=== PATIENT | female | born 1970 | race Caucasian/White ===

== ENCOUNTER 2016-09-19 19:10 | Inpatient (IN) | payer BC ==
[~2016-09-19 19:10] MED LIST: LEVO-154 PO; LINA72CA; LISI10TA3 PO; METO50TA PO; SERT-132 PO; VENTAER INH; ZOFR4TAB PO
[2016-09-19 20:00] VITALS: BP 139/66; PULSE 57; RESP 16; TEMP 96.8; O2SAT 95
[2016-09-19] MEDS ORDERED: ACETAMINOPHEN 325 MG TAB PO PRN ×2 (20:30→22:00)
[2016-09-19] MEDS ORDERED: LIDOCAINE 2% JELLY 30 ML TUBE TOPICAL PRN (20:30)
[2016-09-19] MEDS ORDERED: NALOXONE HCL 0.4 MG/ML AMP IV PRN ×2 (21:45→22:00)
[2016-09-19] MEDS ORDERED: MORPHINE SULFATE 4 MG/ML INJ IV PRN (21:45)
[2016-09-19] MEDS ORDERED: SODIUM CHLOR 0.9% 1000 ML INJ 1,000 ML IV SCH (21:46)
[2016-09-19] MEDS ORDERED: diphenhydrAMINE HCL 25 MG CAP PO PRN (22:00)
[2016-09-19] MEDS ORDERED: SODIUM CHLORIDE 0.9% FLUSH 10 ML FLUSH IV FLUSH PRN (22:00)
[2016-09-19] MEDS ORDERED: MAGNESIUM HYDROXIDE SUSP 30 ML CUP PO PRN (22:00)
[2016-09-19] MEDS ORDERED: ALBUTEROL SULFATE 90 MCG/ACT HFA 18 GM INHALER INH PRN (22:00)
[2016-09-19] MEDS ORDERED: SENNOSIDES 8.6 MG TAB PO PRN (22:00)
[2016-09-19] MEDS ORDERED: ONDANSETRON ODT 4 MG TAB PO PRN (22:00)
[2016-09-19] MEDS ORDERED: LACTULOSE SYRUP 20 GM/30 ML CUP PO PRN (22:00)
[2016-09-19] MEDS ORDERED: BISACODYL 10 MG SUPP RECTAL PRN (22:00)
--- NOTE | 2016-09-19 22:37 | HHI.HP ---
[facility] Service Family Medicine Primary Care Physician Non-Staff Admission Diagnosis Casandra-rectal abscess Diagnoses: Chief Complaint: Casandra-rectal pain International Travel<30 Days: No Contact w/Intl Traveler<30days: No History of Present Illness 46 yr old WF w/ PMH of IBS w/ alternating constipation and diarrhea, hypothyroidism, HTN, and atypical arrhythmia, admitted to ED [place] for two week hx of casandra-rectal pain. States she had a possible hemorrhoid around the affected area 4 months ago that resolved. Over the past two weeks, she has had constant pain that began around her right rectal region radiating to her right buttocks, down her right leg, and right vaginal area. She felt the pain was worsening and went to her PCP (Dr. Gokul Colmenares) in [place] on Wednesday, September 16. She started and finished a full course of Bactrim for possible UTI. The pain around her rectum worsen and experienced drainage of green/yellow pus. With no relief of symptoms, her PCP then started her on Clindamycin. She felt the pain was unbearable with both sitting and standing and immediately came to the ED. She reports she is hesitant to eat because of her constipation and does not want to exacerbate the rectal pain by using the bathroom. Denies fever, urinary problems, abdominal pain, SOB, and N/V. Review of Systems Constitutional: COMPLAINS OF: Change in appetite, DENIES: Fatigue, Fever Endocrine: DENIES: Heat/cold intolerance Eyes: DENIES: Vision loss Respiratory: DENIES: Shortness of breath Cardiovascular: DENIES: Chest pain Gastrointestinal: COMPLAINS OF: Constipation (states that she has to take fiber supplements for constipation), DENIES: Nausea, Vomiting Genitourinary: DENIES: Dysuria Musculoskeletal: DENIES: Stiffness Integumentary: DENIES: Rash Hematologic/lymphatic: DENIES: Lymphadenopathy Neurologic: DENIES: Headache Psychiatric: DENIES: Mood changes Past Family Social History Past Medical History Atypical arrhythmia, IBS, HTN, hypothyroidism Past Surgical History Lap cholecystectomy 1990 Lap band 2004, removed in 2008 Allergies: Coded Allergies: Contrast Media (Verified Allergy, Unknown, 09/19/16) Penicillin (Verified Allergy, Unknown, 09/19/16) Shellfish (Verified Allergy, Unknown, 09/19/16) Family History Colon Cancer in grandfather and sister HTN Social History Works as a nurse, 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 SKIN: No rashes, ecchymoses or lesions. Cool and dry. HEAD: Atraumatic. Normocephalic. No temporal or scalp tenderness. EYES: Pupils equal round and reactive. Extraocular motions intact. No scleral icterus. No injection or drainage. ENT: Nose without bleeding, purulent drainage or septal hematoma. Throat without erythema, tonsillar hypertrophy or exudate. Uvula midline. Airway patent. NECK: Trachea midline. No JVD or lymphadenopathy. Supple, nontender, no meningeal signs. CARDIOVASCULAR: Regular rate and rhythm without murmurs, gallops, or rubs. RESPIRATORY: Clear to auscultation. Breath sounds equal bilaterally. No wheezes , rales, or rhonchi. GASTROINTESTINAL: Abdomen soft, non-tender, nondistended. No hepato-splenomegaly , or palpable masses. No guarding. MUSCULOSKELETAL: Extremities without clubbing, cyanosis, or edema. No joint tenderness, effusion, or edema noted. No calf tenderness. Negative Homans sign bilaterally. NEUROLOGICAL: Awake and alert. Cranial nerves II through XII intact. Motor and sensory grossly within normal limits. Five out of 5 muscle strength in all muscle groups. Normal speech. GENITOURINARY: no superficial mass or swelling appreciated on exam, indurated and slightly erythematous/ warmth area around right rectal region. Laboratory None Imaging 1. Inflamed phlegmon numbness mass or abscess in the right issue rectal fossa adjacent to both the anal verge and vaginal introitus. This measures up to 4.6 x 3.8 cm. 2. No acute findings within the abdomen and pelvis. Previous cholecystectomy. Colonic diverticula. -Results from ED [place] 09/19/16 Assessment and Plan Assessment and Plan 46 yr old WF w/ PMH of IBS w/ alternating constipation and diarrhea, hypothyroidism, HTN, and atypical arrhythmia, admitted to ED [place] for casandra- rectal abscess. CT showed abscess measuring 4.6 x 3.8 cm in the right ischiorectal fossa adjacent to both the anal verge and vaginal introitus. Pt started on Cipro and metronidazole given source of abscess is likely GI. Colorectal surgery consulted for I & D. Problem List: (1) Perirectal abscess Status: Acute Plan: -Cipro & Metronidazole -Tylenol, Toradol, Narco for pain, Morphine for breakthrough pain -consulted colorectal surgery for I & D (2) FEN ppx chronic med conditions Status: Acute Plan: Fluids- maintenance w/ NS Electroylets- monitor and replaced as needed Nutrition- NPO after midnight for possible surgery tomorrow DVT prophylaxis- Heparin GI ppx- anti- constipation medications, Protonix not currently indicated chronic med conditions: continue meds per ordered Physician Certification 2 Midnight Certification Type: Admission for Inpatient Services Order for Inpatient Services The services are ordered in accordance with Medicare regulations or non- Medicare payer requirements, as applicable. In the case of services not specified as inpatient-only, they are appropriately provided as inpatient services in accordance with the 2-midnight benchmark. Estimated LOS (days): 2 2 days is the estimated time the patient will need to remain in the hospital, assuming treatment plan goals are met and no additional complications. Post-Hospital Plan: Home Yara Vela MD R1 Sep 19, 2016 22:37
[2016-09-19] MEDS: METOPROLOL TARTRATE 50 MG TAB PO SCH (22:40)
[2016-09-19] MEDS: HEPARIN SODIUM - SQ 10,000 UNITS/ML VIAL SQ SCH (22:41)
[2016-09-19] MEDS: KETOROLAC TROMETHAMINE 30 MG/ML (IVP) VIAL IVP PRN (22:41)
[2016-09-19] MEDS: DOCUSATE SODIUM 50 MG/SENNA 8.6 MG TAB PO SCH (22:41)
[2016-09-19] MEDS: CIPROFLOXACIN 400 MG PREMIX 200 ML IV SCH (23:50)
[2016-09-20] VITALS (8 sets, daily range): BP systolic 94–123; BP diastolic 49–84; PULSE 45–63; RESP 16–18; TEMP 97–97.7; O2SAT 94–100
[2016-09-20] MEDS: metroNIDAZOLE 500 MG INJ 100 ML IV SCH ×5 (01:17→23:11)
[2016-09-20] MEDS: HEPARIN SODIUM - SQ 10,000 UNITS/ML VIAL SQ SCH (05:33)
[2016-09-20] MEDS: LEVOTHYROXINE SODIUM 75 MCG TAB PO SCH (05:41)
[2016-09-20] MEDS: LEVOTHYROXINE SODIUM 100 MCG TAB PO SCH (05:41)
[2016-09-20] MEDS: ACETAMINOPHEN 325 MG TAB PO PRN (05:41)
[2016-09-20] MEDS: KETOROLAC TROMETHAMINE 30 MG/ML (IVP) VIAL IVP PRN (05:44)
[2016-09-20 06:49] LABS: AUTOMATED NEUTROPHIL # 5.6 TH/MM3 (1.8-7.7); BASOPHIL # 0.1 TH/MM3 (0-0.2); BASOPHIL % 0.6 % (0.0-2.0); EOSINOPHIL # 0.2 TH/MM3 (0-0.4); EOSINOPHIL % 2.7 % (0.0-4.0); HEMATOCRIT 32.7 % (35.0-46.0); HEMO FLAGS DIFF FINAL; LYMPH % 24.8 % (9.0-44.0); LYMPHOCYTE # 2.2 TH/MM3 (1.0-4.8); MEAN CELL VOLUME 89.8 FL (80.0-100.0); MEAN CORPUSCULAR HEMOGLOBIN 29.8 PG (27.0-34.0); MEAN CORPUSCULAR HGB CONC 33.2 % (32.0-36.0); MONO % 7.8 % (0.0-8.0); NEUT % 64.1 % (16.0-70.0); PLATELET COUNT 322 TH/MM3 (150-450); RED BLOOD COUNT 3.64 MIL/MM3 (4.00-5.30); RED CELL DISTRIBUTION WIDTH 13.5 % (11.6-17.2); WHITE BLOOD COUNT 8.7 TH/MM3 (4.0-11.0)
[2016-09-20 07:11] LABS: BICARBONATE 29.9 MEQ/L (21.0-32.0); POTASSIUM 4.3 MEQ/L (3.5-5.1)
[2016-09-20] MEDS: DOCUSATE SODIUM 50 MG/SENNA 8.6 MG TAB PO SCH ×2 (09:00→21:00)
[2016-09-20] MEDS ORDERED: ACETAMINOPHEN 1000 MG/100 ML VIAL IV ONE (09:00)
[2016-09-20] MEDS ORDERED: NON-FORMULARY DRUG (Levothyroxine 175 MCG) PO SCH (09:00)
[2016-09-20] MEDS: LISINOPRIL 10 MG TAB PO SCH (09:18)
[2016-09-20] MEDS: METOPROLOL TARTRATE 50 MG TAB PO SCH ×2 (09:18→21:38)
[2016-09-20] MEDS: SERTRALINE HCL 50 MG TAB PO SCH (09:19)
[2016-09-20] MEDS: SODIUM CHLORIDE 0.9% FLUSH 10 ML FLUSH IV FLUSH SCH ×2 (09:19→21:39)
[2016-09-20 11:13] LABS: BACTERIA, URINE RARE /hpf; BLOOD, URINE NEG (NEG); GLUCOSE,URINE NEG (NEG); KETONE, URINE NEG (NEG); MUCUS URINE FEW /lpf (OCC); NITRITE,URINE NEG (NEG); SQUAMOUS EPITHELIAL CELL URINE 2 /hpf (0-5); TRANSITIONAL EPI CELLS, URINE <1 /hpf; URINE COLOR LIGHT-YELLOW (YELLW/STRAW)
--- NOTE | 2016-09-20 11:26 | HHI.HP ---
[facility] Service Family Medicine Primary Care Physician Non-Staff Admission Diagnosis Casandra-rectal abscess Diagnoses: (1) Perirectal abscess Diagnosis: Principal (2) FEN ppx chronic med conditions Diagnosis: Principal International Travel<30 Days: No Contact w/Intl Traveler<30days: No History of Present Illness Ms Wilcox is a 46 yr old WF w/ PMH of IBS w/ alternating constipation and diarrhea, hypothyroidism, HTN, and atypical arrhythmia, admitted to ED [place] for two week hx of casandra-rectal pain. States she had a possible hemorrhoid around the affected area 4 months ago that resolved. Over the past two weeks, she has had constant pain that began around her right rectal region radiating to her right buttocks, down her right leg, and right vaginal area. She felt the pain was worsening and went to her PCP (Dr. Gokul Colmenares) in [place] on Wednesday, September 16. She started and finished a full course of Bactrim for possible UTI. The pain around her rectum worsen and experienced drainage of green/yellow pus. With no relief of symptoms, her PCP then started her on Clindamycin. She felt the pain was unbearable with both sitting and standing and immediately came to the ED. She reports she is hesitant to eat because of her constipation and does not want to exacerbate the rectal pain by using the bathroom. Denies fever, urinary problems, abdominal pain, SOB, and N/V. She is stable overnight and still reports some pain and drainage but no fevers. Her imaging showed an abscess and Colorectal surgery has been consulted to assist with management and possible surgery. Review of Systems Other Constitutional: COMPLAINS OF: Change in appetite, DENIES: Fatigue, Fever Endocrine: DENIES: Heat/cold intolerance Eyes: DENIES: Vision loss Respiratory: DENIES: Shortness of breath Cardiovascular: DENIES: Chest pain Gastrointestinal: COMPLAINS OF: Constipation (states that she has to take fiber supplements for constipation), DENIES: Nausea, Vomiting Genitourinary: DENIES: Dysuria Musculoskeletal: DENIES: Stiffness Integumentary: DENIES: Rash Hematologic/lymphatic: DENIES: Lymphadenopathy Neurologic: DENIES: Headache Psychiatric: DENIES: Mood changes Past Family Social History Past Medical History Atypical arrhythmia, IBS, HTN, hypothyroidism Past Surgical History Lap cholecystectomy 1990 Lap band 2004, removed in 2008 Allergies: Coded Allergies: Contrast Media (Verified Allergy, Unknown, 09/19/16) Penicillin (Verified Allergy, Unknown, 09/19/16) Shellfish (Verified Allergy, Unknown, 09/19/16) Family History Colon Cancer in grandfather and sister at age 44, HTN Social History Works as a nurse, 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 SKIN: No rashes, ecchymoses or lesions. Cool and dry. HEAD: Atraumatic. Normocephalic. EYES: Pupils equal round and reactive. Extraocular motions intact. No scleral icterus. No injection or drainage. ENT: Nose without bleeding, purulent drainage or septal hematoma. Airway patent. NECK: Trachea midline. No JVD or lymphadenopathy. Supple, nontender, no meningeal signs. CARDIOVASCULAR: Regular rate and rhythm without murmurs, gallops, or rubs. RESPIRATORY: Clear to auscultation. Breath sounds equal bilaterally. No wheezes , rales, or rhonchi. GASTROINTESTINAL: Abdomen soft, non-tender, nondistended. No hepato-splenomegaly , or palpable masses. No guarding. MUSCULOSKELETAL: Extremities without clubbing, cyanosis, or edema. No joint tenderness, effusion, or edema noted. No calf tenderness. Negative Homans sign bilaterally. NEUROLOGICAL: Awake and alert. Cranial nerves II through XII intact. Motor and sensory grossly within normal limits. Five out of 5 muscle strength in all muscle groups. Normal speech. GENITOURINARY: no superficial mass or swelling appreciated on exam, indurated and slightly erythematous/ warmth area around right rectal region. some tenderness on palpation on right but no glaring abnormalities seen externally Laboratory None Imaging 1. Inflamed phlegmon numbness mass or abscess in the right issue rectal fossa adjacent to both the anal verge and vaginal introitus. This measures up to 4.6 x 3.8 cm. 2. No acute findings within the abdomen and pelvis. Previous cholecystectomy. Colonic diverticula. -Results from ED [place] 09/19/16 Laboratory Laboratory Tests Test 09/20/16 06:07 White Blood Count 8.7 Red Blood Count 3.64 Hemoglobin 10.9 Hematocrit 32.7 Mean Corpuscular Volume 89.8 Mean Corpuscular Hemoglobin 29.8 Mean Corpuscular Hemoglobin 33.2 Concent Red Cell Distribution Width 13.5 Platelet Count 322 Mean Platelet Volume 8.4 Neutrophils (%) (Auto) 64.1 Lymphocytes (%) (Auto) 24.8 Monocytes (%) (Auto) 7.8 Eosinophils (%) (Auto) 2.7 Basophils (%) (Auto) 0.6 Neutrophils # (Auto) 5.6 Lymphocytes # (Auto) 2.2 Monocytes # (Auto) 0.7 Eosinophils # (Auto) 0.2 Basophils # (Auto) 0.1 CBC Comment DIFF FINAL Differential Comment Sodium Level 140 Potassium Level 4.3 Chloride Level 105 Carbon Dioxide Level 29.9 Anion Gap 5 Blood Urea Nitrogen 11 Creatinine 0.65 Estimat Glomerular Filtration 98 Rate Random Glucose 89 Calcium Level 8.8 Ferritin 89 Result Diagram: 09/20/16 0607 09/20/16 0607 Imaging 1. Inflamed phlegmon numbness mass or abscess in the right issue rectal fossa adjacent to both the anal verge and vaginal introitus. This measures up to 4.6 x 3.8 cm. 2. No acute findings within the abdomen and pelvis. Previous cholecystectomy. Colonic diverticula. -Results from ED [place] 09/19/16 Assessment and Plan Assessment and Plan 46 yr old WF w/ PMH of IBS w/ alternating constipation and diarrhea, hypothyroidism, HTN, and atypical arrhythmia, admitted to ED [place] and transferred here to [place] for casandra-rectal abscess. CT showed abscess measuring 4.6 x 3.8 cm in the right ischiorectal fossa adjacent to both the anal verge and vaginal introitus. Pt started on Cipro and metronidazole given source of abscess is likely GI. Colorectal surgery consulted for I & D. Problem List: (1) Perirectal abscess Status: Acute Plan: -Cipro & Metronidazole -Tylenol, Toradol, Narco for pain, Morphine for breakthrough pain -consulted colorectal surgery for I & D (2) FEN ppx chronic med conditions Status: Acute Plan: Fluids- maintenance w/ NS Electroylets- monitor and replaced as needed Nutrition- NPO after midnight for possible surgery tomorrow DVT prophylaxis- Heparin GI ppx- anti- constipation medications, Protonix not currently indicated chronic med conditions: continue meds per ordered Physician Certification 2 Midnight Certification Type: Admission for Inpatient Services Order for Inpatient Services The services are ordered in accordance with Medicare regulations or non- Medicare payer requirements, as applicable. In the case of services not specified as inpatient-only, they are appropriately provided as inpatient services in accordance with the 2-midnight benchmark. Estimated LOS (days): 3 3 days is the estimated time the patient will need to remain in the hospital, assuming treatment plan goals are met and no additional complications. Post-Hospital Plan: Home Mckenna Ramirez MD Sep 20, 2016 11:26
[2016-09-20] MEDS: KETOROLAC TROMETHAMINE 30 MG/ML (IVP) VIAL IVP SCH ×2 (11:53→18:22)
[2016-09-20] MEDS ORDERED: ENALAPRILAT 1.25 MG/ML VIAL IV PRN (13:00)
[2016-09-20] MEDS: CIPROFLOXACIN 400 MG PREMIX 200 ML IV SCH (13:20)
[2016-09-20] MEDS: ONDANSETRON HCL 4 MG/2 ML VIAL IVP PRN ×2 (14:36→21:26)
[2016-09-20] MEDS: ACETAMINOPHEN/HYDROcodone 325 MG/5 MG TAB PO PRN (21:33)
[2016-09-21] VITALS: BP 99/49; PULSE 56; RESP 16; TEMP 96.5; O2SAT 96
[2016-09-21] MEDS: KETOROLAC TROMETHAMINE 30 MG/ML (IVP) VIAL IVP SCH ×2 (00:26→05:59)
[2016-09-21] MEDS: CIPROFLOXACIN 400 MG PREMIX 200 ML IV SCH ×2 (00:31→09:56)
[2016-09-21 04:30] VITALS: BP 108/53; PULSE 52; RESP 16; TEMP 96.2; O2SAT 98
[2016-09-21] MEDS: ACETAMINOPHEN/HYDROcodone 325 MG/5 MG TAB PO PRN ×3 (05:17→21:39)
[2016-09-21] MEDS: LEVOTHYROXINE SODIUM 100 MCG TAB PO SCH (05:18)
[2016-09-21] MEDS: LEVOTHYROXINE SODIUM 75 MCG TAB PO SCH (05:18)
[2016-09-21] MEDS: metroNIDAZOLE 500 MG INJ 100 ML IV SCH ×3 (05:23→17:33)
[2016-09-21 05:48] LABS: HEMATOCRIT 31.8 % (35.0-46.0); MEAN CORPUSCULAR HEMOGLOBIN 30.6 PG (27.0-34.0); PLATELET COUNT 291 TH/MM3 (150-450); RED BLOOD COUNT 3.53 MIL/MM3 (4.00-5.30); RED CELL DISTRIBUTION WIDTH 13.2 % (11.6-17.2); REVIEW FLAG FINAL; WHITE BLOOD COUNT 7.8 TH/MM3 (4.0-11.0)
[2016-09-21] MEDS: SODIUM CHLOR 0.9% 1000 ML INJ 1,000 ML IV SCH ×3 (06:02→16:00)
[2016-09-21 08:00] VITALS: BP 94/50; PULSE 51; RESP 16; TEMP 96.8; O2SAT 95
[2016-09-21] MEDS: SODIUM CHLORIDE 0.9% FLUSH 10 ML FLUSH IV FLUSH SCH ×2 (09:00→21:00)
[2016-09-21] MEDS: METOPROLOL TARTRATE 50 MG TAB PO SCH ×3 (09:00→21:38)
[2016-09-21] MEDS: DOCUSATE SODIUM 50 MG/SENNA 8.6 MG TAB PO SCH (09:00)
[2016-09-21] MEDS: LISINOPRIL 10 MG TAB PO SCH (09:00)
[2016-09-21] MEDS: SERTRALINE HCL 50 MG TAB PO SCH (09:40)
[2016-09-21] MEDS ORDERED: SODIUM CHLORID 0.9% 500 ML INJ 500 ML IV ONE (09:45)
[2016-09-21] MEDS ORDERED: DOCUSATE SODIUM 100 MG CAP PO SCH (09:45)
[2016-09-21] MEDS ORDERED: PILL SPLITTER OTHER PRN (09:45)
[2016-09-21] MEDS ORDERED: FLUCONAZOLE 100 MG TAB PO ONE (09:45)
[2016-09-21] MEDS ORDERED: HYDROCHLOROTHIAZIDE 12.5 MG CAP PO PRN (09:45)
[2016-09-21] MEDS: RANITIDINE HCL SYRUP 150 MG/10 ML UDC PO SCH ×2 (09:45→21:38)
--- NOTE | 2016-09-21 10:21 | HHI.FPPN ---
Subjective Remarks No acute events overnight. Patient remains bradycardic with low temperature. Blood pressure overnight ranged from 90s to 100s over 49 to 63. Patient reports that her pain is constant around a 4 out of 10. She feels her pain is well controlled by medication. Patient reports yellow drainage from her rectum and decreased feeling of rectal pressure. She does complain of a headache since initiating these new antibiotics of Cipro and Flagyl. She also reports associated photosensitivity and nausea. She also complains of what she believes to be a yeast infection with thick white discharge, itchy erythematous vulva. Patient is still nothing by mouth in preparation for possible surgical procedure. Luckily, she does not have much of an appetite. She has not had any bowel movements overnight. She also complains of sinus pressure, likely from allergies. Just complains of neck pain, likely from uncomfortable bed. Patient also complains of some periorbital and hand swelling, for which she requests hydrochlorothiazide 12.5 mg when necessary. (Charlie Jarvis MD R1) Objective Vitals Vital Signs Date Time Temp Pulse Resp B/P Pulse Ox O2 Delivery O2 Flow Rate FiO2 09/21/16 08:00 96.8 51 16 94/50 95 09/21/16 04:30 96.2 52 16 108/53 98 09/21/16 00:00 96.5 56 16 99/49 96 09/20/16 21:25 63 123/63 09/20/16 20:00 97.5 56 16 105/52 97 09/20/16 16:00 97.2 59 18 94/59 98 09/20/16 12:00 97.0 45 16 95/50 98 I/O 09/20/16 09/20/16 09/20/16 09/21/16 09/21/16 09/21/16 07:00 15:00 23:00 07:00 15:00 23:00 Intake Total 720 ml 2225 ml Balance 720 ml 2225 ml Intake Oral 720 ml IV Total 2225 ml # Voids 3 4 1 # Bowel Movements 0 (Charlie Jarvis MD R1) Result Diagram: 09/21/16 0505 09/21/16 0503 Objective Remarks GENERAL: Well-nourished, well-developed patient. Pleasant. No acute distress. SKIN: Warm and dry. No rashes present. HEAD: Normocephalic, atraumatic. EYES: No scleral icterus. No injection or drainage. Extraocular movements intact. NECK: Trachea midline. No obvious meningeal signs. CARDIOVASCULAR: Bradycardic rate and regular rhythm. Normal S1 and S2. No murmurs rubs or gallops. RESPIRATORY: No increased work of breathing. No accessory muscle use. Lungs clear to auscultation bilaterally. No wheezes, rhonchi, rales. GASTROINTESTINAL: Abdomen obese. Nondistended. MUSCULOSKELETAL: No cyanosis or edema. No calf tenderness. NEURO: Cranial nerves II through XII grossly intact. No obvious focal neurologic deficits. Moves all extremities well. Normal gait. PSYCH: Normal mood and affect. Good eye contact. Good insight and judgment. Normal speech. (Charlie Jarvis MD R1) A/P Assessment and Plan 46 yr old WF w/ PMH of IBS w/ alternating constipation and diarrhea, hypothyroidism, HTN, and atypical arrhythmia, admitted from ED in [place] and transferred here to [place] in [place] for casandra-rectal abscess. CT showed abscess measuring 4.6 x 3.8 cm in the right ischiorectal fossa adjacent to both the anal verge and vaginal introitus. Pt started on Cipro and metronidazole given source of abscess is likely GI. Colorectal surgery consulted for possible I & D. However, abscess seems to be spontaneously draining. Discharge Planning Per colorectal surgery recommendations (Charlie Jarvis MD R1) Attending Attestation Patient seen and examined. Case reviewed and discussed with the resident team. Agree with plan of care as discussed with me and documented in the resident note. surgery should be the definitive treatment. (Mckenna Ramirez MD) Problem List: (1) Perirectal abscess Status: Acute Plan: Abscess appears to be spontaneous draining. -Consider re-imaging -Continue Cipro & Metronidazole -Tylenol for pain 1-2, [place] when necessary for pain 3-5, Toradol when necessary for pain 6-10, Morphine for breakthrough pain -Added ranitidine for ulcer prevention; added more medications for constipation -consulted colorectal surgery for I & D; patient still nothing by mouth in preparation for possible procedure today. (2) Hypotension Status: Acute Plan: -Half liter normal saline bolus -Increased IV fluids to maintenance rate (3) Headache Status: Acute Plan: Pt c/o ISAACS. Could be related to either abx or sinus pressure/allergies. -Claritin -continue pain medications and abx as above. (4) FEN ppx chronic med conditions Status: Acute Plan: Fluids- maintenance w/ NS Electroylets- monitor and replace as needed Nutrition- NPO for possible surgery today DVT prophylaxis- hold Heparin in preparation for possible surgery today. GI ppx- anti- constipation medications, ranitidine initiated because of treatment with Toradol chronic med conditions: continue meds as ordered (Charlie Jarvis MD R1) Problem Qualifiers (1) Hypotension: Qualified Code: I95.9 - Hypotension, unspecified hypotension type Charlie Jarvis MD R1 Sep 21, 2016 10:21 Mckenna Ramirez MD Sep 22, 2016 11:35
[2016-09-21] MEDS: ACETAMINOPHEN 325 MG TAB PO PRN (11:11)
[2016-09-21 12:00] VITALS: BP 110/60; PULSE 50; RESP 16; TEMP 96.3; O2SAT 98
[2016-09-21] MEDS ORDERED: ONDANSETRON HCL 4 MG/2 ML VIAL IV PUSH ONE (12:00)
[2016-09-21] MEDS ORDERED: KETOROLAC TROMETHAMINE 30 MG/ML (IVP) VIAL IVP PRN (12:00)
[2016-09-21] MEDS ORDERED: PROPOFOL 200 MG/20 ML AMP IV ONE (12:00)
[2016-09-21] MEDS ORDERED: LIDOCAINE 1%/EPINEPHrine 1:100,000 SOLN 20 ML VIAL ONE (14:44)
[2016-09-21] MEDS ORDERED: BUPIVACAINE/EPINEPHRINE 0.5% PF 30 ML VIAL INFIL ONE (15:29)
[2016-09-21] MEDS ORDERED: ONDANSETRON HCL 4 MG/2 ML VIAL ONE (15:47)
[2016-09-21] MEDS ORDERED: *morphine SULFATE 8 MG/ML PERIprocedure ONLY ONE ×2 (15:56→16:20)
[2016-09-21] MEDS ORDERED: MIDAZOLAM HCL 2 MG/2 ML VIAL ONE (15:58)
[2016-09-21] MEDS ORDERED: MORPHINE SULFATE 4 MG/ML INJ IV PUSH PRN (16:15)
[2016-09-21] MEDS ORDERED: DO NOT ADM ANY ANTICOAGULANT DRUGS PRN (16:30)
[2016-09-21 17:00] VITALS: BP 129/69; PULSE 55; RESP 16; TEMP 96.6; O2SAT 100
--- NOTE | 2016-09-21 21:30 | MB ---
cc: DEB ANN M.D. DATE OF CONSULTATION: 09/21/2016 REASON FOR CONSULTATION: Rectal pain, probable rectal abscess. HISTORY OF PRESENT ILLNESS Ms. Wilcox is a 46-year-old female who has had severe constipation most of her life alternating with diarrhea. She has had this evaluated in the past several times. She also has a family history of colon cancer in her sister and grandfather. The patient noted some rectal pain a couple of months ago which appeared to have resolved spontaneously. Over the last two weeks she has had increasing amounts of pain and pressure around the right side of her rectum, buttock area, as well as into the right vaginal area. The pain has progressively gotten worse. She was seen by her family doctor earlier in the week and started on antibiotics for possible UTI. The patient noted some drainage of purulent fluid over the weekend and came to the emergency room for additional evaluation. She denied any fever. No nausea or vomiting. She has always been somewhat constipated despite laxatives. Denies any abdominal distension. No nausea, vomiting or melena. PAST MEDICAL HISTORY: Past medical history is significant for hypertension, hypothyroidism, cardiac arrhythmias, cholecystectomy in 1990, lap band in 2004 which was removed in 2008. MEDICATIONS See admitting list. ALLERGIES IV DYE, PENICILLIN AND SHELLFISH. SOCIAL HISTORY The patient does have one son at home. Denies present tobacco use and only social rare alcohol intake. PERTINENT PHYSICAL Very pleasant heavy-set female in no acute distress. Abdomen was very soft and doughy, not distended. Normal bowel sounds. No rebound or guarding or any masses noted. Anal inspection revealed some induration and thickening in the right anterior quadrant. No obvious cellulitis. Some moisture and mucous type material but no sign of purulent drainage, benign looking hemorrhoids. LABORATORY STUDIES: White count was 8.7, hemoglobin 10.9. Electrolytes were unremarkable with a BUN of 11 and creatinine of 0.6. CT scan was reviewed showing abscess in the perirectal / vaginal septum appears to be indurated and thickened without any obvious fluid contents. IMPRESSION 46-year-old female with significant constipation and on CT scan and history appears to have a rather deep abscess of the right side of the rectum, it is between the rectal tissues and the vaginal tissues. The physical examination failed to show any external cellulitis. We will need to take her to the operating room for examination under anesthesia and more definitive drainage of the abscess depending on intraoperative findings. The risks, benefits and alternatives were discussed at great length with the patient and we will try to arrange for operative drainage some time soon this afternoon. MD DANIELA Ely/ADIN /4:06 PM /9:25 PM
[2016-09-21] MEDS: LORATADINE/PSEUDOEPHEDRINE 5 MG/120 MG TAB PO SCH (21:37)
[2016-09-21 21:51] VITALS: BP 123/60; PULSE 59; RESP 18; TEMP 98.3; O2SAT 99
[2016-09-22 00:47] VITALS: BP 115/57; PULSE 53; RESP 16; TEMP 97; O2SAT 93
[2016-09-22] MEDS: ACETAMINOPHEN/HYDROcodone 325 MG/5 MG TAB PO PRN ×2 (01:42→05:45)
[2016-09-22 04:00] VITALS: BP 121/58; PULSE 54; RESP 16; TEMP 96.4; O2SAT 96
[2016-09-22] MEDS: ONDANSETRON HCL 4 MG/2 ML VIAL IVP PRN ×2 (04:28→09:29)
[2016-09-22] MEDS: LEVOTHYROXINE SODIUM 100 MCG TAB PO SCH (05:45)
[2016-09-22] MEDS: LEVOTHYROXINE SODIUM 75 MCG TAB PO SCH (05:45)
[2016-09-22] MEDS: SODIUM CHLOR 0.9% 1000 ML INJ 1,000 ML IV SCH (07:12)
[2016-09-22 08:00] VITALS: BP 125/77; PULSE 59; RESP 16; TEMP 96.7; O2SAT 99
[2016-09-22] MEDS: RANITIDINE HCL SYRUP 150 MG/10 ML UDC PO SCH (09:01)
[2016-09-22] MEDS: SERTRALINE HCL 50 MG TAB PO SCH (09:01)
[2016-09-22] MEDS: METOPROLOL TARTRATE 50 MG TAB PO SCH (09:01)
[2016-09-22] MEDS: SODIUM CHLORIDE 0.9% FLUSH 10 ML FLUSH IV FLUSH SCH (09:02)
[2016-09-22] MEDS: LORATADINE/PSEUDOEPHEDRINE 5 MG/120 MG TAB PO SCH (09:02)
--- NOTE | 2016-09-22 09:08 | HHI.PR ---
Subjective Remarks Feels better. Going to resume her Miralax for constipation. Objective Vital Signs Date Time Temp Pulse Resp B/P Pulse Ox O2 Delivery O2 Flow Rate FiO2 09/22/16 04:00 96.4 54 16 121/58 96 09/22/16 00:47 97.0 53 16 115/57 93 09/21/16 21:51 98.3 59 18 123/60 99 09/21/16 17:00 96.6 55 16 129/69 100 09/21/16 16:30 97.5 54 13 123/63 100 Nasal Cannula 2 09/21/16 16:15 53 12 128/65 100 Nasal Cannula 2 09/21/16 16:00 55 13 118/56 99 Nasal Cannula 2 09/21/16 15:50 97.4 62 15 139/60 100 Nasal Cannula 2 09/21/16 12:00 96.3 50 16 110/60 98 I/O 09/21/16 09/21/16 09/21/16 09/22/16 09/22/16 09/22/16 07:00 15:00 23:00 07:00 15:00 23:00 Intake Total 2225 ml 0 ml 600 ml 390 ml Output Total 300 ml Balance 2225 ml 0 ml 300 ml 390 ml Intake Oral 0 ml 200 ml 390 ml IV Total 2225 ml Other 400 ml Output Urine Total 250 ml Estimated Blood Loss 50 ml # Voids 3 3 # Bowel Movements 0 0 Result Diagram: 09/21/16 0505 09/21/16 0503 Objective Remarks Wound clean, Packing removed. No bleeding. Assessment and Plan Assessment and Plan Stable post op D/C today. Call Dr Coley for F/U appt. Gokul Santiago MD Sep 22, 2016 09:08
[2016-09-22] MEDS ORDERED: NORC5TAB PO ×2 (09:35→09:40)
--- NOTE | 2016-09-22 09:42 | HHI.DCPOC ---
Discharge Care Plan Diagnosis: (1) Perirectal abscess Goals to Promote Your Health * To prevent worsening of your condition and complications * To maintain your health at the optimal level Directions to Meet Your Goals Take your medications as prescribed Follow your dietary instruction Follow activity as directed Keep your appointments as scheduled Take your immunizations and boosters as scheduled If your symptoms worsen call your PCP, if no PCP go to Urgent Care Center or Emergency Room Smoking is Dangerous to Your Health. Avoid second hand smoke Call the 24-hour hour crisis hotline for domestic abuse at July Negron MD R1 Sep 22, 2016 09:42
--- NOTE | 2016-09-22 11:35 | HHI.FPPN ---
Subjective Remarks Ms Wilcox is s/p surgery with a large deep abscess that was drained. Per colo- rectal surgery she does not need abx and should be able to go home today. She had her packing removed at bedside and was up ambulating in room. Objective Vitals Vital Signs Date Time Temp Pulse Resp B/P Pulse Ox O2 Delivery O2 Flow Rate FiO2 09/22/16 08:00 96.7 59 16 125/77 99 09/22/16 04:00 96.4 54 16 121/58 96 09/22/16 00:47 97.0 53 16 115/57 93 09/21/16 21:51 98.3 59 18 123/60 99 09/21/16 17:00 96.6 55 16 129/69 100 09/21/16 16:30 97.5 54 13 123/63 100 Nasal Cannula 2 09/21/16 16:15 53 12 128/65 100 Nasal Cannula 2 09/21/16 16:00 55 13 118/56 99 Nasal Cannula 2 09/21/16 15:50 97.4 62 15 139/60 100 Nasal Cannula 2 09/21/16 12:00 96.3 50 16 110/60 98 I/O 09/21/16 09/21/16 09/21/16 09/22/16 09/22/16 09/22/16 06:59 14:59 22:59 06:59 14:59 22:59 Intake Total 2225 ml 0 ml 600 ml 390 ml Output Total 300 ml Balance 2225 ml 0 ml 300 ml 390 ml Intake Oral 0 ml 200 ml 390 ml IV Total 2225 ml Other 400 ml Output Urine Total 250 ml Estimated Blood Loss 50 ml # Voids 3 3 # Bowel Movements 0 0 Result Diagram: 09/21/16 0505 09/21/16 0503 Objective Remarks GENERAL: Well-nourished, well-developed patient. Pleasant. pain when packing removed. SKIN: Warm and dry. No rashes present. HEAD: Normocephalic, atraumatic. EYES: No scleral icterus. No injection or drainage. Extraocular movements intact. NECK: Trachea midline. No obvious meningeal signs. CARDIOVASCULAR: Bradycardic rate and regular rhythm. Normal S1 and S2. No murmurs rubs or gallops. RESPIRATORY: No increased work of breathing. No accessory muscle use. Lungs clear to auscultation bilaterally. No wheezes, rhonchi, rales. GASTROINTESTINAL: Abdomen obese. Nondistended. MUSCULOSKELETAL: No cyanosis or edema. No calf tenderness. NEURO: Cranial nerves II through XII grossly intact. No obvious focal neurologic deficits. Moves all extremities well. Normal gait. PSYCH: Normal mood and affect. Good eye contact. Good insight and judgment. Normal speech. Rectum- large amount of packing removed literally about 2 feet of it. dried blood and not much new bleeding Urinary Catheter: No Vascular Central Line Catheter: No A/P Assessment and Plan 46 yr old WF w/ PMH of IBS w/ alternating constipation and diarrhea, hypothyroidism, HTN, and atypical arrhythmia, admitted from ED in [place] and transferred here to [facility] in [place] for casandra-rectal abscess. CT showed abscess measuring 4.6 x 3.8 cm in the right ischiorectal fossa adjacent to both the anal verge and vaginal introitus. Pt started on Cipro and metronidazole given source of abscess is likely GI. Colorectal surgery consulted for I & D. However, abscess seems to be spontaneously draining. She had surgery and did very well and is ready to leave today. Discharge Planning Per colorectal surgery recommendations, she can go home today see D/C orders she did very well with surgery and is ready to go home today. She was given 20 of norco 5/325mg to go home with and she will resume her regular meds and follow up with Rodo Coley and her primary Dr. Problem List: (1) Perirectal abscess Status: Acute Plan: s/p surgery doing well -stop Cipro & Metronidazole as drainage was the definitive treatment -Tylenol for pain 1-2, [place] when necessary for pain 3-5, Toradol when necessary for pain 6-10, Morphine for breakthrough pain -Added ranitidine for ulcer prevention; added more medications for constipation -consulted colorectal surgery for I & D (2) Hypotension Status: Acute Plan: taking po meds, stable overall (3) FEN ppx chronic med conditions Status: Acute Plan: Fluids- maintenance w/ NS Electroylets- monitor and replace as needed Nutrition- regular diet DVT prophylaxis- walking GI ppx- anti- constipation medications, ranitidine initiated because of treatment with Toradol chronic med conditions: continue meds as ordered Problem Qualifiers (1) Hypotension: Qualified Code: I95.9 - Hypotension, unspecified hypotension type Mckenna Ramirez MD Sep 22, 2016 11:35
[2016-09-22 12:00] VITALS: BP 111/53; PULSE 51; RESP 16; TEMP 97.5; O2SAT 95
[2016-09-22] MEDS ORDERED: PROMETHAZINE HCL 25 MG TAB PO PRN (13:30)
[2016-09-22] MEDS ORDERED: SIMETHICONE 80 MG CHEWABLE TAB CHEW PRN (13:30)
[2016-09-22 16:00] VITALS: BP 111/53; PULSE 70; RESP 16; TEMP 97.7; O2SAT 98
--- NOTE | 2016-09-24 08:01 | MP ---
cc: DEB ANN M.D. DATE OF SURGERY September 21, 2016 PREOPERATIVE DIAGNOSIS Rectal abscess. PROCEDURE Exam under anesthesia with incision and drainage of rectal abscess and fistulotomy. POSTOPERATIVE DIAGNOSIS Rectal abscess. SURGEON Dr. Ann PROCEDURE The patient was placed in the left lateral decubitus position. After adequate anesthesia sedation, her buttocks were taped apart, prepped with Betadine solution and draped in the usual sterile fashion. Additional anesthesia was obtained by injection of 1% Xylocaine/0.5% Marcaine with epinephrine. The anal canal was gently dilated and a half-lowery retractor inserted. Examination revealed a crypt in the anterior midline which probed into a space in the right anterior quadrant that really was quite deep and went up along the rectovaginal septum. Fistulotomy incision was made over the abscess cavity, entering a large cavity full of purulent fluid. The cavity was gently digitalized and loculations broken up. It did appear to extend fairly significantly along the rectum and into the ischiorectal space. After adequate debridement and irrigation, hemostasis was achieved. The external opening was enlarged for better wound care postoperatively. The cavity was packed with a Kerlix dressing and a large fluff dressing externally. The patient tolerated the procedure quite well and was brought to the recovery room in stable condition. MD DANIELA Ely/SAJI /10:28 PM /7:56 AM
== END 2016-09-22 17:57 | disposition home or self-care (01) | DRG 346 ==
LOC: NEDDLT 19:10 → HOCA 19:17
PROVIDERS: ADMIT Family Medicine; ATTEND Family Medicine
PROC: 0D9P7ZZ Drainage of Rectum, Via Natural or Artificial Opening (ICD-10-PCS; principal; 2016-09-21 15:12)
DX: K61.1 Rectal abscess (principal); I95.9 Hypotension, unspecified; I10 Essential (primary) hypertension; E03.9 Hypothyroidism, unspecified; K59.00 Constipation, unspecified; Z91.041 Radiographic dye allergy status; Z88.0 Allergy status to penicillin; Z91.013 Allergy to seafood; Z80.0 Family history of malignant neoplasm of digestive organs; K57.30 Diverticulosis of large intestine without perforation or abscess without bleeding; R00.1 Bradycardia, unspecified; B37.3 Candidiasis of vulva and vagina; R51 Headache
CPT/HCPCS: 74176; 80048; 80053; 81001; 82728; 83605; 83690; 84702; 85025; 85027; 85610; 85730; 87086; 96365; 96375; J0131; J0744; J1170; J1644; J1885; J2250; J2270; J2405; J3010; J7030; J7040; Q0169